=== PATIENT | male | born 1985 | race Caucasian/White ===

== ENCOUNTER 2021-07-27 19:14 | Emergency (ER) | payer BC, SELFPAY ==
[2021-07-27 19:16] VITALS: BP 166/90; PULSE 90; RESP 16; TEMP 36.1; O2SAT 99; BMI 29.9
--- NOTE | 2021-07-27 19:49 | US_ITS ---
STUDY: SCROTUM ULTRASOUND REASON FOR EXAM: Male, 35 years old. Right testicular pain for a week TECHNIQUE: Ultrasound evaluation of the scrotum was performed with color Doppler and static morrissey-scale imaging. COMPARISON: None. FINDINGS: RIGHT TESTICLE INTRATESTICULAR: There is a normal size of the right testicle. The right testicle measures 4.5 x 2 .9 cm. There is a homogenous echotexture. There is normal arterial and normal venous vascularity. There is demonstrated right testicular microcalcifications. EXTRATESTICULAR: The epididymis is normal in size. The epididymis head measures 1.2 cm. There is normal vascularity of the epididymis. There is no demonstrated epididymal cystic structure. There is no demonstrated hydrocele. There is no demonstrated varicocele. There is no demonstrated extratesticular mass or cyst. LEFT TESTICLE INTRATESTICULAR: There is a normal size of the left testicle. The left testicle measures 4.5 x 2 .9 cm. There is a homogenous echotexture. There is normal arterial and normal venous vascularity. There is demonstrated left testicular microcalcifications. EXTRATESTICULAR: The epididymis is normal in size. The epididymis head measures 1.1 cm. There is normal vascularity of the epididymis. There is no demonstrated epididymal cystic structure. There is a small hydrocele. There is no demonstrated varicocele. There is no demonstrated extratesticular mass or cyst. US/Testicular with Arterial Flow IMPRESSION: There is demonstrated bilateral testicular microcalcifications. Surveillance is warranted. Small left testicular hydrocele. There are no acute findings of the bilateral testicles without evidence for torsion. Electronically Signed: Niles Groves MD at 20:46 EST Reading Location ID and State: [facility] / [place] , Service support ,
[2021-07-27 20:51] LABS: Bacteria 0 SEEN /hpf (None Seen); Mucous, Urine 0 SEEN /hpf (<or=2+); Red Blood Cells-Urine 0 SEEN /hpf (0-5); Squamous Epithelial Cells - UA 0 SEEN /hpf (0-5)
[2021-07-27 21:16] LABS: Color, Urine Straw (Yellow); Glucose, Dipstick Normal (Normal); Ketone-Dipstick Negative (Negative); Leukocyte Esterase-Dipstick 25 /ul (Negative); Nitrite-Dipstick Negative (Negative); Occult Blood-Urine 10 /ul (Negative); Protein-Dipstick Negative (Negative); Urine Bilirubin Dipstick Negative (Negative); Urine Clarity Clear (Clear); Urine Urobilinogen Normal (Normal)
[2021-07-27 21:18] VITALS: RESP 16
[2021-07-27 21:30] LABS: White Blood Cells 0-5 SEEN /hpf (0-5)
--- NOTE | 2021-07-27 21:52 | EX.ED.GUMALE ---
HPI History of Present Illness Chief Complaint: Male Pain/Injury Narrative Narrative: Patient complaining of some intermittent sense of right-sided testicular fullness for over a month no pain normal bowel bladder habits no trauma he [place] in [place] decided he should have this evaluated [facility] Home Medications NK 07/27/21 [History Last Taken Unknown] Allergy/AdvReac Type Severity Reaction Status Date / Time No Known Allergies Allergy Verified 07/27/21 19:15 Surgical History (Updated 07/27/21 @ 19:32 by Katie Lowe) History of Alana fundoplication Social History Smoking Status: Current every day smoker tobacco type: cigarettes EXAM Physical Exam Narrative Exam Narrative: The vital signs unremarkable patient's exam head neck chest abdomen unremarkable. exam the right and left testicle are generally unremarkable there nontender I do not feel any obvious masses or fullness or other acute gross abnormalities he assures me he is having normal bowel bladder habits Const Vital Signs: 07/27/21 19:16 07/27/21 21:18 Temperature 97 F L Temperature Source Temporal Pulse Rate 90 Respiratory Rate 16 16 Blood Pressure 166/90 H Blood Pressure Mean 115 Pulse Ox 99 Oxygen Delivery Method Room Air MDM MDM MDM Narrative Medical decision making narrative: The patient's ultrasound of the testicles and scrotal area showed nothing acute some calcifications radiology recommends further screening of these calcifications in the future explained this to the patient his UA was negative, explained if the symptoms persist he should be seen by urologist when he returns home he is not really sure how long he staying in town he agrees and will is comfortable discharge home Home stable Final impression concern for testicular mass Lab Data Labs: Laboratory Results - last 24 hr 07/27/21 20:34 Urine Color Straw Urine Clarity Clear Urine pH 7.0 Ur Specific [place] 1.010 Urine Protein Negative Urine Glucose (UA) Normal Urine Ketones Negative Urine Occult Blood 10 H Urine Nitrite Negative Urine Bilirubin Negative Urine Urobilinogen Normal Ur Leukocyte Esterase 25 H Urine RBC 0 SEEN Urine WBC 0-5 SEEN Ur Squamous Epith Cells 0 SEEN Urine Bacteria 0 SEEN Urine Mucus 0 SEEN Radiography Diagnostic Testing: Clinical Impression(s) from Imaging Studies Testicular Ultrasound 07/27/21 19:49 IMPRESSION: There is demonstrated bilateral testicular microcalcifications. Surveillance is warranted. Small left testicular hydrocele. There are no acute findings of the bilateral testicles without evidence for torsion. Electronically Signed: Niles Groves MD at 20:46 EST Reading Location ID and State: [facility] / [place] , Service support , Discharge Plan Triage Chief Complaint: Male Pain/Injury ED Provider: Sabrina Smith Dx/Rx/DC Orders Clinical Impression: Pain in scrotum or testicle Instructions: ED Epididymitis Prescriptions: No Action NK RF: 0 Primary Care Provider: Care Physician,No Primary Referrals: Care Physician,No Primary [Primary Care Provider] - Activity Restrictions/Additional Instructions: You should follow-up with your family doctor or urologist when you get home in a few weeks you will require repeat ultrasound to make sure the calcium in your testicles has not changed Disposition Disposition: Home, Self Care
== END 2021-07-27 22:05 | disposition home or self-care (01) ==
PROVIDERS: Emergency Provider Emergency Medicine; Visit Provider Emergency Medicine
DX: N50.811 Right testicular pain (principal); F17.210 Nicotine dependence, cigarettes, uncomplicated
CPT/HCPCS: 76870; 81001; 87086; 93976; 99282